=== PATIENT | female | born 1935 | race Caucasian/White ===

== ENCOUNTER → 2020-08-12 16:06 | Outpatient (CLI) | payer MEDICARE, SELFPAY ==
[2020-08-12 17:52] LABS: Alanine Aminotransferase 15 U/L (12-78); Albumin Level 4.5 g/dl (3.5-5.0); Albumin/Globulin Ratio 1.8 (1.1-1.8); Alkaline Phosphatase 81 U/L (38-126); Anion Gap 11.3 mEq/L (5-15); Aspartate Amino Transferase 26 U/L (14-36); Bilirubin,Total 0.5 mg/dl (0.2-1.3); Blood Urea Nitrogen 20 mg/dl (7-17); Calcium 9.6 mg/dl (8.4-10.2); Carbon Dioxide 28 mmol/L (22.0-30.0); Chloride 106 mmol/L (98-107); Chol/HDL Ratio 3.5 (1-3.5); Cholesterol 235 mg/dl (140-200); Estimated Glomerular Filt Rate 69 ml/min (>60); GFR (African American) 83 ML/MIN (>60); Globulin 2.5 g/dL (1.3-3.2); Glucose 96 mg/dl (74-100); HDL Cholesterol 68 mg/dl (40-60); Potassium 4.3 mmoL/L (3.5-5.1); Sodium 141 mmol/L (136-145); Triglycerides 127 mg/dl (30-150); VLDL Cholesterol 25 mg/dL (0-40)
[2020-08-12 18:05] LABS: Direct LDL Cholesterol 132.98 mg/dL (100-129)
[2020-08-12 18:22] LABS: Thyroid Stimulating Hormone 1.37 uIU/mL (0.465-4.68)
== END ==
PROVIDERS: Visit Provider Family Medicine
DX: E78.00 Pure hypercholesterolemia, unspecified (principal); I10 Essential (primary) hypertension
CPT/HCPCS: 36415; 80053; 80061; 84443

== ENCOUNTER → 2020-08-15 15:45 | Outpatient (CLI) | payer MEDICARE, SELFPAY ==
[2020-08-15 17:27] LABS: Microalbumin/Creatinine Ratio 33.5
[2020-08-15 17:34] LABS: Creatinine,Urine Random 171 mg/dL (Not Estab.)
== END ==
PROVIDERS: Visit Provider Family Medicine
DX: I10 Essential (primary) hypertension (principal); E78.00 Pure hypercholesterolemia, unspecified
CPT/HCPCS: 82043; 82570

== ENCOUNTER 2020-09-19 08:03 | Inpatient (IN) | payer MEDICARE, SELFPAY ==
[2020-09-19] VITALS (34 sets, daily range): BP systolic 124–186; BP diastolic 70–127; PULSE 74–181; RESP 8–38; TEMP 36.6–36.9; O2SAT 92–98; BMI 24.0; BMI 25.6
--- NOTE | 2020-09-19 08:03 | ECG_ITS ---
APPROVED REPORT Exam: Resting ECG HR:162 bpm ECG Measurements Heart Rate 162 AXES QRSd 82 QRS 75 QT 272 T 244 QTc 446 Conclusion Atrial fibrillation with rapid ventricular response with premature ventricular or aberrantly conducted complexes ST & T wave abnormality, consider inferolateral ischemia or digitalis effect Abnormal ECG Electronically signed by : Dandre Alexander, 09/22/2020 07:35:38
--- NOTE | 2020-09-19 08:05 | PC.NURSE ---
at bedside 0852
--- NOTE | 2020-09-19 08:11 | XR_ITS ---
PROCEDURE: XR CHEST PORTABLE CLINICAL HISTORY: soa Shortness of air, smoker COMPARISON: No exams were available for comparison FINDINGS: Mild cardiomegaly without failure. Mild airspace disease in the lung bases which may be due to atelectasis and/or infiltrate. No acute bony abnormalities. IMPRESSION: Cardiomegaly with mild bibasilar airspace disease Dictated by: Rene Cardoso MD 09/19/2020 08:59 Rene Cardoso MD in [place] 09/19/2020 08:59
[2020-09-19 08:19] LABS: Basophils # 0.1 K/mm3 (0-0.2); Basophils % 0.9 % (0.1-2.0); Eosinophils # 0.1 K/mm3 (0.0-0.4); Eosinophils % 0.6 % (0.1-12.0); Hematocrit 44.9 % (37.0-47.0); Hemoglobin 14.2 g/dL (12.2-16.2); Lymphocytes # 2.3 K/mm3 (0.7-4.5); Mean Corpuscular HGB Conc 31.5 g/dL (31.8-35.4); Mean Corpuscular Hemoglobin 29.2 pg (27.0-31.2); Mean Corpuscular Volume 92.6 fl (81-99); Mean Platelet Volume 9.4 fl (7.4-10.4); Monocytes # 0.4 K/mm3 (0.1-1.0); Monocytes % 5.1 % (1.7-9.3); Neutrophils # 5.1 K/mm3 (1.8-7.8); Neutrophils % 64.4 % (37.0-80.0); Platelet Count 191 K/mm3 (142-424); Red Blood Count 4.85 M/mm3 (4.20-5.40); Red Cell Distribution Width 14.5 % (11.5-17.5); White Blood Count 7.9 K/mm3 (4.8-10.8)
--- NOTE | 2020-09-19 08:19 | PC.NURSE ---
Rad at bedside.
[2020-09-19 08:20] LABS: Chloride 100 mmol/L (98-107); Potassium 3.7 mmoL/L (3.5-5.1); Sodium 139 mmol/L (136-145)
[2020-09-19 08:23] LABS: Anion Gap 14.7 mEq/L (5-15); Blood Urea Nitrogen 28 mg/dl (7-17); Calcium 9.4 mg/dl (8.4-10.2); Carbon Dioxide 28 mmol/L (22.0-30.0); Creatinine Clearance Estimated 43 mL/min (50-200); Estimated Glomerular Filt Rate 69 ml/min (>60); GFR (African American) 83 ML/MIN (>60); Glucose 127 mg/dl (74-100); Magnesium 2.1 mg/dl (1.6-2.3)
--- NOTE | 2020-09-19 08:25 | HMH.EDGENADL ---
ED Disposition Clinical Impression: Atrial fibrillation with RVR Disposition: Admitted As Inpatient Condition on Discharge: Good Referrals: Isaías Birch MD [Primary Care Provider] - - Critical Care Critical Care Time: Yes (IV diltiazem required for control of heart rate) Attestation: On 09/19/20, the high probability of a clinically significant, sudden or life threatening deterioration of the following system(s) required my full and direct attention, intervention and personal management. The time I documented below is in addition to time spent performing reported procedures but includes the following listed in this critical care notation. Total Critical Care Time: 40 Vital system(s) involved:: Circulatory Failure My critical care processes included: Assessment & monitoring of V/S, Initial and Re-exams, Data Review/Interpretation, Coordinating Care, Medication Orders and management, Documentation Medical Decision Making - Medical Records Medical records reviewed: Yes: I reviewed the patient's medical records. - Darian Inquiry Pt receiving controlled substance: No Vital Signs: 09/19/20 08:03 09/19/20 08:14 09/19/20 08:24 Temperature 97.9 F Temperature Source Oral Pulse Rate 176 H 115 H Pulse Rate [Right] 181 H Respiratory Rate 18 20 18 Blood Pressure 162/127 H 152/95 H Blood Pressure [Right Arm] 166/102 H Blood Pressure Mean 138 115 Blood Pressure Mean [Right Arm] 123 02 Sat by Pulse Oximetry 97 97 95 Oxygen Delivery Method Room Air 09/19/20 08:30 Temperature Temperature Source Pulse Rate 131 H Pulse Rate [Right] Respiratory Rate 20 Blood Pressure 165/92 H Blood Pressure [Right Arm] Blood Pressure Mean 121 Blood Pressure Mean [Right Arm] 02 Sat by Pulse Oximetry 95 Oxygen Delivery Method - Lab Data Lab Results 09/19/20 08:05: WBC 7.9, RBC 4.85, Hgb 14.2, Hct 44.9, MCV 92.6, MCH 29.2, MCHC 31.5 L, RDW 14.5, Plt Count 191, MPV 9.4, Neut % (Auto) 64.4, Lymph % (Auto) 29.0, [place] % (Auto) 5.1, Eos % (Auto) 0.6, Baso % (Auto) 0.9, Neut # (Auto) 5.1, Lymph # (Auto) 2.3, [place] # (Auto) 0.4, Eos # (Auto) 0.1, Baso # (Auto) 0.1 09/19/20 08:05: Sodium 139, Potassium 3.7, Chloride 100, Carbon Dioxide 28, Anion Gap 14.7, BUN 28 H, Creatinine 0.80, Estimated Creat Clear 43, Estimated GFR 69, Est GFR ( Amer) 83, Glucose 127 H, Calcium 9.4, Magnesium 2.1, Troponin I 0.04 H, NT-Pro-B Natriuret Pep 3310 H, TSH 2.42 09/19/20 08:58: D-Dimer 0.61 H Result diagrams: 09/19/20 08:05 09/19/20 08:05 Orders (Tests/Meds): ED MEDICATIONS Generic Name Dose Route Start Last Admin Trade Name Freq PRN Reason Stop Dose Admin Acetaminophen 650 mg 09/19/20 09:13 Acetaminophen 325mg Tab PO 10/19/20 09:12 Q4HP PRN As Needed for Fever or Pain Enoxaparin Sodium 60 mg 09/19/20 09:00 Enoxaparin 60mg/0.6ml Syringe SQ 10/19/20 08:59 Q12H ERIS Diltiazem HCl 100 mg/ Sodium 100 mls @ 5 mls/hr 09/19/20 08:15 09/19/20 08:27 Chloride IV 10/19/20 08:14 5 mls/hr .Q20H ERIS Administration Protocol Discontinued Medications Generic Name Dose Route Start Last Admin Trade Name Freq PRN Reason Stop Dose Admin Diltiazem HCl 20 mg 09/19/20 08:10 09/19/20 08:20 Diltiazem 25mg/5ml Vial IV 09/19/20 08:11 20 mg ONCE ONE Administration Enoxaparin Sodium 60 mg 09/19/20 09:15 09/19/20 09:14 Enoxaparin 100mg/Ml Syringe SQ 10/19/20 09:14 60 mg Q12H ERIS Administration ORDERS Category Date Time Status Consult to Cardiology [CONS] Routine Cons 09/19/20 09:12 Active Basic Metabolic Panel AMLAB Lab 09/20/20 06:00 Ordered Complete Blood Count Auto Diff AMLAB Lab 09/20/20 06:00 Ordered Full Resp Panel w/COVID ([facility]) Routine Lab 09/19/20 09:06 Received Lipid Panel AMLAB Lab 09/20/20 06:00 Ordered Magnesium AMLAB Lab 09/20/20 06:00 Ordered Phosphorous AMLAB Lab 09/20/20 06:00 Ordered Troponin I Q3H Lab 09/19/20 11:15 Ordered Troponin
[2020-09-19 08:33] LABS: NT Pro Brain Natriuretic Pep. 3310 pg/mL (0-450)
--- NOTE | 2020-09-19 08:36 | PC.NURSE ---
Lab advised they have to reject the blue top tube as it is overfilled. This is the second rejected blue top . Lab advised to send someone down to draw it.
[2020-09-19 08:37] LABS: Troponin I 0.04 ng/ml (0.00-0.034)
[2020-09-19 08:54] LABS: Thyroid Stimulating Hormone 2.42 uIU/mL (0.465-4.68)
--- NOTE | 2020-09-19 08:55 | PC.NURSE ---
Lab at bedside. MD also at bedside updating patient.
--- NOTE | 2020-09-19 09:04 | PC.NURSE ---
Dr Hernandez speaking with Leticia at this time.
--- NOTE | 2020-09-19 09:06 | CA_ITS ---
APPROVED REPORT EXAM: Comprehensive 2D, Doppler, and color-flow Echocardiogram [employer] Powerplant Repairer: Antonette Flores, RCS, RVS Ht: 5 ft 4 in Wt: 140lbs BSA: 1.68 BP: 162/98 mmHg Rhythm: Atrial Fibrillation Indications: Afib, smoker, soa 2D Dimensions IVSd 1.00 cm F: 0.6-1.0 LVEF (Visual) 33.40 % PWd 0.85 cm F: 0.6 - 1.0 LA Volume 85.10 mL LVDd 4.85 cm F: 3.9 - 5.3 LA Volume Index 50.65 mL/m2 (M/F) 16-34 LVDs 4.08 cm F: 2.2 - 3.5 LVOT 1.80 cm (M/F) 1.5-2.5 M-Mode Dimensions RVDd 2.55 cm (0.9-2.6) LA Diam 3.55 cm (1.9-4.0) LVDd 4.63 cm (3.5-5.7) Ao Diam 2.76 cm (2.0-3.7) LVDs 3.52 cm (3.5-5.7) IVSd 1.15 cm (0.6-1.1) PWd 1.11 cm (0.6-1.1) EF (Teich) 47.80% EPSs 1.04 cm FS 24.00% EDV (Teich) 98.80 mL TAPSE 1.75 (<1.7) ESV (Teich) 51.60 mL LV Diastology E Decel Time 180.00 (160-240 msec) E/A Ratio 3.5 MED E' 7.60 (< 7 cm/sec) MED A' 6.00 cm/s E'/MED E' Ratio 14.01 (>14) LAT E' 8.20 (<10 cm/sec) LAT A' 9.20 cm/s E/LAT E' Ratio 12.99 (>14) Pulm Vein s 29.00 cm/sec Aortic Valve LVOT Max 81.00 (70-110 cm/s) LVOT VTI 13.19 cm AoV Peak Joshua. 137.00 (50-130 cm/s) AO Peak GR. 7.50 mmHg AO Mean GR. 3.60 (<5 mmHg) AO VTI 20.82 (18-25 cm) DRU (VTI) 1.61 (2.5-4.5 cm2) Mitral Valve MV E Max Joshua. 107.00 (40-130 cm/s) MV A Velocity 31.00 (40-130 cm/s) E/A Ratio 3.38 MV Decel. Time 180.00 (160-240 ms) MV PHT 53.00 ms Pulmonary Valve PV Peak Velocity 65.00 (50-150 cm/s) Tricuspid Valve TR P. Velocity 335.00 cm/s RAP Estimate 10.00 mmHg RVSP 55.00 mmHg Left Ventricle Left atrium is moderately enlarged, left ventricle is normal size, mild concentric left ventricular hypertrophy, visually estimated ejection fraction 40% left ventricle is globally hypokinetic, throughout this study patient was in atrial fibrillation with rapid ventricular response. Diastolic parameters are inconclusive, Doppler evidence of increased left ventricular end-diastolic pressure. Right Ventricle Right atrium is moderately enlarged, right ventricle is mildly enlarged with normal contractility. Aortic Valve Aortic valve is thickened and calcified without Doppler evidence of aortic stenosis or aortic insufficiency. Mitral Valve Mitral valve leaflets are minimally thickened, there is moderate to severe mitral regurgitation. Tricuspid Valve Tricuspid valve is grossly normal, there is mild tricuspid regurgitation, calculated right ventricular systolic pressure is 55 mmHg. Pulmonic Valve Pulmonic valve is poorly visualized. Great Vessels Aortic root is normal size. Inferior vena cava is not well visualized Pericardium No significant pericardial effusion noted Conclusion 1. Moderate biatrial enlargement, normal left ventricular size, mild concentric left ventricular hypertrophy, visually estimated ejection fraction 40%, left ventricle is globally hypokinetic, throughout the study patient was in atrial fibrillation with rapid ventricular response, which makes accurate assessment of ejection fraction difficult. Doppler evidence of raise left ventricular end-diastolic pressure. 3. Moderate to severe mitral and mild tricuspid regurgitation, calculated right ventricular systolic pressure 55 mmHg, inferior vena cava is not well visualized. 4. No significant pericardial effusion noted. Electronically signed by : Arnoldo Garcia,
--- NOTE | 2020-09-19 09:08 | PC.NURSE ---
Dr Hernandez speaking with Cuedd at this time.
--- NOTE | 2020-09-19 09:11 | PC.NURSE ---
IV CARDIZEM TITRATED TO 10ML/HR PER MD VERBAL ORDER
[2020-09-19 09:14] LABS: Adenovirus,PCR Not Detected (NotDetected); Bordetella Pertussis Not Detected (NotDetected); Chlamydophila Pneumoniae, PCR Not Detected (NotDetected); Coronavirus 19, PCR Not Detected (NotDetected); Coronavirus 229E Not Detected (NotDetected); Coronavirus NL63 Not Detected (NotDetected); Coronavirus OC43 Not Detected (NotDetected); Coronovirus HKU1,PCR Not Detected (NotDetected); Human Metapneumovirus Not Detected (NotDetected); Influenza A, PCR Not Detected (NotDetected); Influenza AH1, 2009 Not Detected (NotDetected); Influenza AH1, PCR Not Detected (NotDetected); Influenza AH3,PCR Not Detected (NotDetected); Influenza B, PCR Not Detected (NotDetected); Mycoplasma Pneumoniae, PCR Not Detected (NotDetected); Parainfluenza 1, PCR Not Detected (NotDetected); Parainfluenza 2, PCR Not Detected (NotDetected); Parainfluenza 3, PCR Not Detected (NotDetected); Parainfluenza 4, PCR Not Detected (NotDetected); Respiratory Syncytial Virus Not Detected (NotDetected); Rhinovirus/Enterovirus Not Detected (NotDetected)
[2020-09-19 09:22] LABS: D-Dimer 0.61 ug/mL (0.0-0.5)
--- NOTE | 2020-09-19 10:11 | PC.NURSE ---
CV lab at bedside
--- NOTE | 2020-09-19 11:43 | HMH.CNCARD ---
History of Present Illness Consult date: 09/19/20 Requesting physician: Antonio Hernandez Consult reason: atrial fibrillation Chief complaint: SOA History of present illness: This is an 84-year-old white female who presented to the emergency department with complaints of shortness of breath. The patient states that she has been short of breath for approximately a week. She states that this has continued to worsen. She states that she is unable to lie flat due to her significant shortness of breath. She states her shortness of breath is worse with exertion and it does improve with rest but it does not go away. She states that sitting up completely also causes her to be significantly short of breath. The patient states that she just has not felt well the last 2 weeks. She was also constipated and took MiraLAX approximately 2 days ago and has been having diarrhea ever since then. She denies any chest pain or pressure. She denies any lower extremity edema. She denies any fever, chills, nausea or vomiting. She denies a cough. She does complain of excessive burping in the last 2 weeks as well and also states that this gets worse when she lies down. She states that her heart started racing 2 days ago and has not resolved. She states that this got worse this morning. On presentation to the emergency department she was found to be in atrial fibrillation with RVR, heart rate in the 180s. She was given 20 mg of IV diltiazem and her heart rate dropped down to the 110s to 120s. She remains in atrial fibrillation at this time. [facility] History I have reviewed the patient's past medical history: Yes Medical History: Reports:: Arrhythmia, Atrial Fibrillation, Hypertension Denies:: Atherosclerotic Heart Disease, Cancer, Diabetes Mellitus Type 1, Diabetes Mellitus Type 2, Hyperlipidemia, Internal Pacemaker, MRSA, Seizures *Have you ever received a pneumonia vaccine?: No *Have you received a flu vaccine this season?: No Other Surgeries: No: Pacemaker Amputation: No Fractures: No - *Social History Smoking Status: Current every day smoker Tobacco Type: cigarettes # Packs/Day (cigarettes): 60 Alcohol Intake: never *Occupational Status:: retired Housing: house *Travel in the last 8 weeks: None Family Hx:: Hypertension Meds Home Medications Medication Instructions Recorded Confirmed Type Amitriptyline HCl [Elavil 10mg 25 mg PO QODHS 07/27/19 09/19/20 History tablet] Allergies Allergy/AdvReac Type Severity Reaction Status Date / Time No Known Allergies Allergy Verified 07/27/19 13:37 Exam Vital signs and Labs for Last 24 Hours: Temp Pulse Resp BP Pulse Ox 97.9 F 108 H 21 156/104 H 94 L 09/19/20 08:03 09/19/20 09:46 09/19/20 09:40 09/19/20 09:46 09/19/20 09:46 Laboratory Results - last 24 hr 09/19/20 08:05: WBC 7.9, RBC 4.85, Hgb 14.2, Hct 44.9, MCV 92.6, MCH 29.2, MCHC 31.5 L, RDW 14.5, Plt Count 191, MPV 9.4, Neut % (Auto) 64.4, Lymph % (Auto) 29.0, [place] % (Auto) 5.1, Eos % (Auto) 0.6, Baso % (Auto) 0.9, Neut # (Auto) 5.1, Lymph # (Auto) 2.3, [place] # (Auto) 0.4, Eos # (Auto) 0.1, Baso # (Auto) 0.1 09/19/20 08:05: Sodium 139, Potassium 3.7, Chloride 100, Carbon Dioxide 28, Anion Gap 14.7, BUN 28 H, Creatinine 0.80, Estimated Creat Clear 43, Estimated GFR 69, Est GFR ( Amer) 83, Glucose 127 H, Calcium 9.4, Magnesium 2.1, Troponin I 0.04 H, NT-Pro-B Natriuret Pep 3310 H, TSH 2.42 09/19/20 08:58: D-Dimer 0.61 H 09/19/20 09:06: Chlamy pneumoniae PCR Not detected, Adenovirus (PCR) Not detected, B. pertussis DNA (PCR) Not detected, Coronavirus OC43 (PCR) Not detected, Coronavirus HKU1 (PCR) Not detected, Coronavirus 229E (PCR) Not detected, SARS-CoV-2 (PCR) Not detected, Coronavirus NL63 (PCR) Not detected, Human Metapneumovir PCR Not detected, Influenza A (H1) PCR Not detected, Influ A (H1N1/09) PCR Not detected, Influenza A (H3) PCR Not detected, Influenza Type A (PCR) Not detected, Influenza Type B (PCR) Not detected, Kevyn wolf
[2020-09-19 11:55] LABS: Troponin I 0.04 ng/ml (0.00-0.034)
[2020-09-19 13:12] LABS: ABG Base Excess -0.8 mmol/L (-2.4-2.3); ABG HCO3 23.2 mmhg (22.0-26.0); ABG Oxygen Saturation 93 % (90-100); ABG PCO2 34.5 mmhg (35.0-45.0); ABG PH 7.45 mmol/L (7.35-7.45); ABG PO2 67.4 mmhg (80-100); ABG TCO2 24.3 mmhg (23-27)
[2020-09-19 13:15] LABS: Allen's Test Acceptable; Oxygen room air %; Source Right Radial
--- NOTE | 2020-09-19 13:52 | PC.NURSE ---
2L O2 via NC applied per Dr. Birch.
--- NOTE | 2020-09-19 13:58 | HMH.ACPN2 ---
Internal Medicine - PN: Subj *Date: 09/19/20 *Time: 13:58 Interval history: Pt admitted with A fib with RVR, see H&P. Exam Vital signs and Labs for Last 24 Hours: Temp Pulse Resp BP Pulse Ox 97.9 F 128 H 20 124/72 92 L 09/19/20 12:46 09/19/20 13:33 09/19/20 12:46 09/19/20 12:46 09/19/20 12:46 Laboratory Results - last 24 hr 09/19/20 08:05: WBC 7.9, RBC 4.85, Hgb 14.2, Hct 44.9, MCV 92.6, MCH 29.2, MCHC 31.5 L, RDW 14.5, Plt Count 191, MPV 9.4, Neut % (Auto) 64.4, Lymph % (Auto) 29.0, [place] % (Auto) 5.1, Eos % (Auto) 0.6, Baso % (Auto) 0.9, Neut # (Auto) 5.1, Lymph # (Auto) 2.3, [place] # (Auto) 0.4, Eos # (Auto) 0.1, Baso # (Auto) 0.1 09/19/20 08:05: Sodium 139, Potassium 3.7, Chloride 100, Carbon Dioxide 28, Anion Gap 14.7, BUN 28 H, Creatinine 0.80, Estimated Creat Clear 43, Estimated GFR 69, Est GFR ( Amer) 83, Glucose 127 H, Calcium 9.4, Magnesium 2.1, Troponin I 0.04 H, NT-Pro-B Natriuret Pep 3310 H, TSH 2.42 09/19/20 08:58: D-Dimer 0.61 H 09/19/20 09:06: Chlamy pneumoniae PCR Not detected, Adenovirus (PCR) Not detected, B. pertussis DNA (PCR) Not detected, Coronavirus OC43 (PCR) Not detected, Coronavirus HKU1 (PCR) Not detected, Coronavirus 229E (PCR) Not detected, SARS-CoV-2 (PCR) Not detected, Coronavirus NL63 (PCR) Not detected, Human Metapneumovir PCR Not detected, Influenza A (H1) PCR Not detected, Influ A (H1N1/09) PCR Not detected, Influenza A (H3) PCR Not detected, Influenza Type A (PCR) Not detected, Influenza Type B (PCR) Not detected, M. pneumoniae (PCR) Not detected, Parainfluenza 1 (PCR) Not detected, Parainfluenza 2 (PCR) Not detected, Parainfluenza 3 (PCR) Not detected, Parainfluenza 4 (PCR) Not detected, RSV (PCR) Not detected, Entero/Rhino (PCR) Not detected 09/19/20 11:20: Troponin I 0.04 H 09/19/20 12:42: Specimen Source Right radial, O2 % room air, ABG pH 7.45, ABG pCO2 34.5 L, ABG pO2 67.4 L, ABG HCO3 23.2, ABG Total CO2 24.3, ABG O2 Saturation 93, ABG Base Excess -0.8, Rene Test Acceptable I & O for Last 24 hours: Intake & Output 09/16/20 09/17/20 09/18/20 09/19/20 23:59 23:59 23:59 23:59 Weight 149 lb 3 oz - Constitutional no acute distress - *Routine Respiratory Exam Comments: few coarse breath sounds, no crackles - *Routine Cardiovascular Exam Present: tachycardia, irregular rhythm Assessment and Plan (1) Cardiomyopathy Status: Acute Category: Medical Code(s): I42.9 - Cardiomyopathy, unspecified (2) Atrial fibrillation with RVR Status: Acute Category: Medical Code(s): I48.91 - Unspecified atrial fibrillation (3) Elevated brain natriuretic peptide (BNP) level Status: Acute Category: Medical Code(s): R79.89 - Other specified abnormal findings of blood chemistry (4) CHF (congestive heart failure) Status: Acute Category: Medical Code(s): I50.9 - Heart failure, unspecified (5) Orthopnea Status: Acute Category: Medical Code(s): R06.01 - Orthopnea (6) SOB (shortness of breath) Status: Acute Category: Medical Code(s): R06.02 - Shortness of breath (7) Palpitations Status: Acute Category: Medical Code(s): R00.2 - Palpitations (8) Hypertension Status: Chronic Category: Medical Code(s): I10 - Essential (primary) hypertension (9) Tobacco use Status: Chronic Category: Social Hx Code(s): Z72.0 - Tobacco use (10) Hypokinesis Status: Acute Category: Medical Code(s): R68.89 - Other general symptoms and signs (11) Pulmonary hypertension Status: Acute Category: Medical Code(s): I27.20 - Pulmonary hypertension, unspecified - Assessment and plan all Dx Assessment and Plan for all problems:: Cardiology following, further testing is in order.
--- NOTE | 2020-09-19 14:30 | PC.NURSE ---
Diltiazem gtt turned OFF per Leydi Dawson APRN
--- NOTE | 2020-09-19 14:31 | HMH.PHAVTE ---
[facility] Pharm[facility] VTE Monitoring - Patient Demographics Admission date: 09/19/20 Report Date: 09/19/20 Time: 14:31 Allergies/Adverse Reactions: Patient Allergies No Known Allergies Allergy (Verified 07/27/19 13:37) Height: 1.63 m Weight: 67.67 kg Patient Problems: Current Active Problems Atrial fibrillation with RVR (Acute) Hypertension (Chronic) Palpitations (Acute) SOB (shortness of breath) (Acute) Orthopnea (Acute) CHF (congestive heart failure) (Acute) Elevated brain natriuretic peptide (BNP) level (Acute) Tobacco use (Chronic) Cardiomyopathy (Acute) Hypokinesis (Acute) Pulmonary hypertension (Acute) - VTE Risk Labs: VTE Related Lab Results Hgb 14.2 g/dL (12.2-16.2) 09/19/20 08:05 Hct 44.9 % (37.0-47.0) 09/19/20 08:05 Plt Count 191 K/mm3 (142-424) 09/19/20 08:05 BUN 28 mg/dl (7-17) H 09/19/20 08:05 Creatinine 0.80 mg/dl (0.52-1.04) 09/19/20 08:05 Estimated Creat Clear 43 mL/min (50-200) 09/19/20 08:05 - Prophylaxis VTE Prophylaxis Ordered?: Yes Types of VTE Prophylaxis: TEDS Knee High, Pharmacological Location of Applied Device: Bilateral Lower Extremeties Pharmacologic Type: Enoxaparin
[2020-09-19 14:43] LABS: Troponin I 0.04 ng/ml (0.00-0.034)
--- NOTE | 2020-09-19 15:37 | HMH.HP ---
*Admission Date: 09/19/20 *Chief complaint: shortness of breath, vertigo *History of present illness: This is an 84-year-old white female who presented to the emergency department with complaints of shortness of breath. The patient states that she has been short of breath for approximately a week. She states that this has continued to worsen. She states that she is unable to lie flat due to her significant shortness of breath. She states her shortness of breath is worse with exertion and it does improve with rest but it does not go away. She states that sitting up completely also causes her to be significantly short of breath. The patient states that she just has not felt well the last 2 weeks. She was also constipated and took MiraLAX approximately 2 days ago and has been having diarrhea ever since then. She denies any chest pain or pressure. She denies any lower extremity edema. She denies any fever, chills, nausea or vomiting. She denies a cough. She does complain of excessive burping in the last 2 weeks as well and also states that this gets worse when she lies down. She states that her heart started racing 2 days ago and has not resolved. She states that this got worse this morning. On presentation to the emergency department she was found to be in atrial fibrillation with RVR, heart rate in the 180s. She was given 20 mg of IV diltiazem and her heart rate dropped down to the 110s to 120s. She remains in atrial fibrillation at this time. (above as per Leydi Dawson) [facility] History I have reviewed the patient's past medical history: Yes Medical History: Reports:: Arrhythmia, Atrial Fibrillation, Cardiomyopathy, Congestive Heart Failure, Cerebrovascular Accident, Hypertension, Palpitations Denies:: Atherosclerotic Heart Disease, Cancer, Diabetes Mellitus Type 1, Diabetes Mellitus Type 2, Hyperlipidemia, Internal Pacemaker, MRSA, Seizures *Have you ever received a pneumonia vaccine?: No *Have you received a flu vaccine this season?: No Other Surgeries: No: Pacemaker Amputation: No Fractures: No - *Social History Smoking Status: Current every day smoker Tobacco Type: cigarettes # Packs/Day (cigarettes): 3 Alcohol Intake: never *Occupational Status:: retired Housing: apartment *Travel in the last 8 weeks: None Family Hx:: Hypertension Review of Systems - Constitutional Reports fatigue, Reports malaise, Reports weakness, Denies fever(s) - Eyes Denies blurry vision, Denies double vision - ENT Denies nasal congestion, Denies sore throat - *Cardiovascular Reports shortness of breath, Reports leg swelling, Reports rapid, pounding, or irregular heartbeat, Denies chest pain - *Respiratory Reports cough, Reports shortness of breath - *Gastrointestinal Reports abdominal pain, Reports loose stools, Reports nausea, Reports vomiting - *Genitourinary Denies difficulty urinating, Denies painful urination - *Musculoskeletal Denies joint pain - *Neurologic Reports dizziness, Reports weakness, Denies dizziness, Denies headache(s) Meds Home Medications Medication Instructions Recorded Confirmed Type Amitriptyline HCl [Elavil 10mg 25 mg PO QODHS 07/27/19 09/19/20 History tablet] Allergies Allergy/AdvReac Type Severity Reaction Status Date / Time No Known Allergies Allergy Verified 07/27/19 13:37 Exam Vital signs and Labs for Last 24 Hours: Temp Pulse Resp BP Pulse Ox 98.4 F 104 H 18 162/101 H 97 09/19/20 14:24 09/19/20 14:24 09/19/20 14:24 09/19/20 14:24 09/19/20 14:00 Laboratory Results - last 24 hr 09/19/20 08:05: WBC 7.9, RBC 4.85, Hgb 14.2, Hct 44.9, MCV 92.6, MCH 29.2, MCHC 31.5 L, RDW 14.5, Plt Count 191, MPV 9.4, Neut % (Auto) 64.4, Lymph % (Auto) 29.0, [place] % (Auto) 5.1, Eos % (Auto) 0.6, Baso % (Auto) 0.9, Neut # (Auto) 5.1, Lymph # (Auto) 2.3, [place] # (Auto) 0.4, Eos # (Auto) 0.1, Baso # (Auto) 0.1 09/19/20 08:05: Sodium 139, Potassium 3.7, Chloride 100, Carbon Dioxide 28, Ani
--- NOTE | 2020-09-19 15:45 | PC.NURSE ---
attempted to get cathlab consent signed but pt states that she wants to wait until tomorrow morning to sign it. She needs time to make a decision.
--- NOTE | 2020-09-19 15:47 | PC.NURSE ---
informed Leydi Dawson APRN of hyptension (184/106) with MAP 132. No new orders received @ this time.
--- NOTE | 2020-09-19 17:13 | PC.NURSE ---
pt has agreed to heart cath tomorrow. Consent has been signed and placed on chart
--- NOTE | 2020-09-19 18:06 | PC.NURSE ---
Spoke to Dr. Birch regarding BP 186/104 (131). He ordered Lisinopril 10mg po x 1 dose. Order faxed to [facility].
--- NOTE | 2020-09-19 22:27 | PC.NURSE ---
RA SATS WERE 89%. RETURNED PT BACK ON 2L.
[2020-09-20] VITALS (24 sets, daily range): BP systolic 109–153; BP diastolic 47–121; PULSE 83–106; RESP 16–28; TEMP 36.5–36.9; O2SAT 90–98; BMI 22.1
--- NOTE | 2020-09-20 | IR_ITS ---
APPROVED REPORT Patient Location: Inpatient Oracle Sql Developer: RODOLFO Luna RT (R) PROCEDURES Left heart catheterization Left ventriculogram Selective coronary angiogram Drug-eluting stent deployment to the proximal LAD Drug-eluting stent deployment to the ostial proximal mid and distal dominant right coronary artery Drug-eluting stent deployment to the proximal posterior descending artery INDICATION Ischemic cardiomyopathy, Elevated troponin/acute coronary syndrome, Coronary disease, Advanced age with significant comorbidities making coronary artery bypass surgery not an option Informed consent was obtained prior to the procedure. COMPLICATIONS None Estimated Blood Loss: Less than 10 mls TECHNIQUE One percent lidocaine used to anesthetize the right anterior aspect of the wrist. The right radial artery was accessed via the Seldinger technique. A 6 [place] sheath was placed in the right radial artery. 2.5 mg of verapamil, 800 mcg of nitroglycerin, 1mg Lidocaine and 5000 U Heparin were given through the arterial sheath. The 6 [place] tag catheter was also used to perform left heart catheterization, left ventriculogram and selective coronary angiogram. At the end of the diagnostic procedure therapeutic heparin was administered and the catheter was placed in the left main artery. 2 wires were placed in the left system 1 in the circumflex artery and a floppy wire in the LAD system. A 2.5 x 30 mm resolute [place] stent was deployed in the ostial proximal LAD at 16 gilberto reducing the severe to critical stenosis to 0%. ISMAEL-3 flow was present before and after the procedure. After achieving excellent angiographic results the apparatus was removed and the catheter was placed back into the right coronary where a choice PT extra-support wire was placed distally. A 2.5 x 38 mm resolute [place] stent was placed to the posterior descending artery and deployed at 14 gilberto reducing the severe stenosis to less than 10%. An additional 2.5 x 38 mm resolute Clement stent was then placed in the distal right coronary artery overlapping the stent and deployed at 16 gilberto. A 2.75 x 38 mm resolute Clement stent was then placed proximal to this overlapping the second stent and deployed at 18 gilberto. An additional 2.75 x 30 mm resolute [place] stent was then placed in the ostial segment of the right coronary artery making an overlap of the 2.75 mm stent and then deployed at 18 gilberto. 800 mcg of nitroglycerin was administered down the right coronary artery. Excellent angiographic results were obtained with wide patency of the entire vessel with excellent inline flow into the posterior descending artery. At the end of the procedure the apparatus was removed the sheath was removed good hemostasis was achieved using TR banding patient was transferred to the postop holding in stable condition ANGIOGRAPHIC RESULTS The left main artery Normal The left anterior descending artery Has a proximal eccentric 70% stenosis followed by concentric 90% stenosis. The midportion of the vessel was extremely tortuous but patent. The circumflex artery There is a nondominant yet still large vessel giving rise to 2 large obtuse marginal arteries. The proximal vessel has 20 to 30% stenoses while the second obtuse marginal artery has a proximal concentric 40 to 50% stenosis The right coronary artery Is a dominant vessel with proximal mid vessel distal critical disease which extends into a large posterior descending artery The TRAN ventriculogram reveals Reduced at 35 % The left ventricular end-diastolic pressure 20 mmHg IMPRESSION Severe to critical two-vessel coronary disease as described above Successful stenting the proximal LAD severe disease reduced to 0%
[2020-09-20 07:21] LABS: Basophils % 0.2 % (0.1-2.0); Hematocrit 45.5 % (37.0-47.0); Hemoglobin 14.2 g/dL (12.2-16.2); Lymphocytes # 0.7 K/mm3 (0.7-4.5); Lymphocytes % 9.7 % (10-50); Mean Corpuscular HGB Conc 31.1 g/dL (31.8-35.4); Mean Corpuscular Hemoglobin 28.7 pg (27.0-31.2); Mean Corpuscular Volume 92.1 fl (81-99); Mean Platelet Volume 9.7 fl (7.4-10.4); Monocytes # 0.2 K/mm3 (0.1-1.0); Monocytes % 3.4 % (1.7-9.3); Neutrophils # 5.9 K/mm3 (1.8-7.8); Neutrophils % 86.7 % (37.0-80.0); Platelet Count 168 K/mm3 (142-424); Red Blood Count 4.94 M/mm3 (4.20-5.40); Red Cell Distribution Width 14.3 % (11.5-17.5); White Blood Count 6.8 K/mm3 (4.8-10.8)
[2020-09-20 07:26] LABS: MANUAL DIFFERENTIAL MANUAL DIFFERENTIAL (MANUAL DIFF)
[2020-09-20 07:28] LABS: Chloride 96 mmol/L (98-107); Potassium 3.2 mmoL/L (3.5-5.1); Sodium 140 mmol/L (136-145)
[2020-09-20 07:31] LABS: Anion Gap 11.2 mEq/L (5-15); Blood Urea Nitrogen 22 mg/dl (7-17); Calcium 8.8 mg/dl (8.4-10.2); Carbon Dioxide 36 mmol/L (22.0-30.0); Cholesterol 193 mg/dl (140-200); Creatinine Clearance Estimated 39 mL/min (50-200); Estimated Glomerular Filt Rate 80 ml/min (>60); GFR (African American) 97 ML/MIN (>60); Glucose 101 mg/dl (74-100); Phosphorous 4.6 mg/dl (2.5-4.5); Triglycerides 66 mg/dl (30-150); VLDL Cholesterol 13 mg/dL (0-40)
[2020-09-20 07:32] LABS: Chol/HDL Ratio 4.5 (1-3.5); HDL Cholesterol 43 mg/dl (40-60); Magnesium 1.8 mg/dl (1.6-2.3)
[2020-09-20 07:42] LABS: Direct LDL Cholesterol 135.54 mg/dL (100-129)
--- NOTE | 2020-09-20 07:59 | HMH.PNCARD ---
Subjective Date: 09/20/20 Time: 07:25 Principal diagnosis: Atrial fibrillation Interval history: 84-year-old female admitted to [facility] with progressively worsening shortness of breath yesterday. Patient does have history of COPD. Patient was noted to be in atrial fibrillation with RVR. Patient had been started on a diltiazem drip in which her heart rate slowed down to 110s. Patient remains in atrial fibrillation with a heart rate in the 90s. Diltiazem drip has been stopped due to cardiomyopathy. Patient was started on metoprolol 25 mg p.o. every 6 hours for heart rate control. Patient was also started on digoxin for rhythm control. Patient is currently receiving a weight-based Lovenox twice daily but prior to discharge patient will need to be switched over to Xarelto once daily. Due to the progressively worsening shortness of breath, cardiomyopathy and pulmonary hypertension, patient will undergo left and right heart catheterization today. Patient denies chest pain, tightness or pressure. Patient states her shortness of breath is feeling slightly better. Patient is noted to be on oxygen at 2 L by nasal cannula. Slight swelling noted of the lower extremities. Patient denies dizziness or palpitations. Patient is resting quietly with daughter at bedside. Patient does have moderate to severe mitral valve regurgitation. Patient is not a candidate for surgery due to her severe COPD. Vital signs stable at this time. Due to patient not being a candidate for valve surgery, patient is scheduled for left and right heart catheterization today due to dyspnea, cardiomyopathy and pulmonary hypertension. Pending on the results of the left and right heart catheterization, medication and treatment therapy may be recommended. Echo: Conclusion 1. Moderate biatrial enlargement, normal left ventricular size, mild concentric left ventricular hypertrophy, visually estimated ejection fraction 40%, left ventricle is globally hypokinetic, throughout the study patient was in atrial fibrillation with rapid ventricular response, which makes accurate assessment of ejection fraction difficult. Doppler evidence of raise left ventricular end-diastolic pressure. 3. Moderate to severe mitral and mild tricuspid regurgitation, calculated right ventricular systolic pressure 55 mmHg, inferior vena cava is not well visualized. 4. No significant pericardial effusion noted. Thank you for allowing cardiology to participate in the care of this patient. Exam Vital signs and Labs for Last 24 Hours: Temp Pulse Resp BP Pulse Ox 98.0 F 91 H 19 153/96 H 92 L 09/20/20 04:00 09/20/20 06:00 09/20/20 06:00 09/20/20 06:00 09/20/20 04:00 Laboratory Results - last 24 hr 09/19/20 08:05: WBC 7.9, RBC 4.85, Hgb 14.2, Hct 44.9, MCV 92.6, MCH 29.2, MCHC 31.5 L, RDW 14.5, Plt Count 191, MPV 9.4, Neut % (Auto) 64.4, Lymph % (Auto) 29.0, [place] % (Auto) 5.1, Eos % (Auto) 0.6, Baso % (Auto) 0.9, Neut # (Auto) 5.1, Lymph # (Auto) 2.3, [place] # (Auto) 0.4, Eos # (Auto) 0.1, Baso # (Auto) 0.1 09/19/20 08:05: Sodium 139, Potassium 3.7, Chloride 100, Carbon Dioxide 28, Anion Gap 14.7, BUN 28 H, Creatinine 0.80, Estimated Creat Clear 43, Estimated GFR 69, Est GFR ( Amer) 83, Glucose 127 H, Calcium 9.4, Magnesium 2.1, Troponin I 0.04 H, NT-Pro-B Natriuret Pep 3310 H, TSH 2.42 09/19/20 08:58: D-Dimer 0.61 H 09/19/20 09:06: Chlamy pneumoniae PCR Not detected, Adenovirus (PCR) Not detected, B. pertussis DNA (PCR) Not detected, Coronavirus OC43 (PCR) Not detected, Coronavirus HKU1 (PCR) Not detected, Coronavirus 229E (PCR) Not detected, SARS-CoV-2 (PCR) Not detected, Coronavirus NL63 (PCR) Not detected, Human Metapneumovir PCR Not detected, Influenza A (H1) PCR Not detected, Influ A (H1N1/09) PCR Not detected, Influenza A (H3) PCR Not detected, Influenza Type A (PCR) Not detected, Influenza Type B (PCR) Not detected, M. pneumoniae (PCR) Not detected, Parainfluenza 1 (PC
[2020-09-20 08:23] LABS: Lymphocytes % 6 % (10-50); Monocytes % 3 % (2-9); Neutrophils % 87 % (42-76); Platelet Estimate Normal; RBC Morphology Normal; Total Cells Counted 100
--- NOTE | 2020-09-20 08:36 | HMH.ACPN2 ---
<Donya Eaton - Last Filed: 09/20/20 08:36> Internal Medicine - PN: Subj *Date: 09/20/20 *Time: 08:36 Interval history: Patient states she is feeling better today. She denies any chest pain. She states her shortness of breath has improved slightly. Her heart rate has decreased. She was able to rest better last night. Exam Vital signs and Labs for Last 24 Hours: Temp Pulse Resp BP Pulse Ox 97.7 F 92 H 20 152/78 H 92 L 09/20/20 08:00 09/20/20 08:00 09/20/20 08:00 09/20/20 08:00 09/20/20 08:00 Laboratory Results - last 24 hr 09/19/20 08:05: WBC 7.9, RBC 4.85, Hgb 14.2, Hct 44.9, MCV 92.6, MCH 29.2, MCHC 31.5 L, RDW 14.5, Plt Count 191, MPV 9.4, Neut % (Auto) 64.4, Lymph % (Auto) 29.0, [place] % (Auto) 5.1, Eos % (Auto) 0.6, Baso % (Auto) 0.9, Neut # (Auto) 5.1, Lymph # (Auto) 2.3, [place] # (Auto) 0.4, Eos # (Auto) 0.1, Baso # (Auto) 0.1 09/19/20 08:05: Troponin I 0.04 H, NT-Pro-B Natriuret Pep 3310 H, TSH 2.42 09/19/20 08:58: D-Dimer 0.61 H 09/19/20 09:06: Chlamy pneumoniae PCR Not detected, Adenovirus (PCR) Not detected, B. pertussis DNA (PCR) Not detected, Coronavirus OC43 (PCR) Not detected, Coronavirus HKU1 (PCR) Not detected, Coronavirus 229E (PCR) Not detected, SARS-CoV-2 (PCR) Not detected, Coronavirus NL63 (PCR) Not detected, Human Metapneumovir PCR Not detected, Influenza A (H1) PCR Not detected, Influ A (H1N1/09) PCR Not detected, Influenza A (H3) PCR Not detected, Influenza Type A (PCR) Not detected, Influenza Type B (PCR) Not detected, M. pneumoniae (PCR) Not detected, Parainfluenza 1 (PCR) Not detected, Parainfluenza 2 (PCR) Not detected, Parainfluenza 3 (PCR) Not detected, Parainfluenza 4 (PCR) Not detected, RSV (PCR) Not detected, Entero/Rhino (PCR) Not detected 09/19/20 11:20: Troponin I 0.04 H 09/19/20 12:42: Specimen Source Right radial, O2 % room air, ABG pH 7.45, ABG pCO2 34.5 L, ABG pO2 67.4 L, ABG HCO3 23.2, ABG Total CO2 24.3, ABG O2 Saturation 93, ABG Base Excess -0.8, Rene Test Acceptable 09/19/20 14:10: Troponin I 0.04 H 09/20/20 05:20: WBC 6.8, RBC 4.94, Hgb 14.2, Hct 45.5, MCV 92.1, MCH 28.7, MCHC 31.1 L, RDW 14.3, Plt Count 168, MPV 9.7, Neut % (Auto) 86.7 H, Lymph % (Auto) 9.7 L, [place] % (Auto) 3.4, Eos % (Auto) 0.0 L, Baso % (Auto) 0.2, Neut # (Auto) 5.9, Lymph # (Auto) 0.7, [place] # (Auto) 0.2, Eos # (Auto) 0.0, Baso # (Auto) 0.0, Total Counted 100, Neutrophils % (Manual) 87 H, Lymphocytes % (Manual) 6 L, Atypical Lymphs % 4.0, Monocytes % (Manual) 3, Platelet Estimate Normal, RBC Morphology Normal 09/20/20 05:20: Sodium 140, Potassium 3.2 L, Chloride 96 L, Carbon Dioxide 36 H D, Anion Gap 11.2, BUN 22 H, Creatinine 0.70, Estimated Creat Clear 39, Estimated GFR 80, Est GFR ( Amer) 97, Glucose 101 H D, Calcium 8.8, Phosphorus 4.6 H, Magnesium 1.8 D, Triglycerides 66, Cholesterol 193, LDL Cholesterol Direct 135.54 H, VLDL Cholesterol 13, HDL Cholesterol 43, Cholesterol/HDL Ratio 4.5 H I & O for Last 24 hours: Intake & Output 09/17/20 09/18/20 09/19/20 09/20/20 11:59 11:59 11:59 11:59 Intake Total Output Total 0 / 0 Balance Weight 140 lb 129 lb 6 oz - Constitutional no acute distress - *Routine Respiratory Exam Present: rhonchi. Absent: rales - *Routine Cardiovascular Exam Present: irregularly irregular - *Routine Abdominal Exam Present: soft, normoactive bowel sounds. Absent: tenderness - *Routine Extremities Exam Absent: cyanosis, clubbing, edema - *Routine Skin Exam Present: warm. Absent: rash - *Routine Neurological Exam Present: alert, oriented X3 Assessment and Plan (1) Cardiomyopathy Status: Acute Category: Medical Code(s): I42.9 - Cardiomyopathy, unspecified (2) Atrial fibrillation with RVR Status: Acute Category: Medical Code(s): I48.91 - Unspecified atrial fibrillation (3) Elevated brain natriuretic peptide (BNP) level Status: Acute Category: Medical Code(s): R79.89 - Other specified abnormal findings of blood
--- NOTE | 2020-09-20 11:25 | PC.NURSE ---
Pt off floor for heart cath
[2020-09-20 13:21] LABS: CATHL Activated Clotting Time > 400 SEC (74-125)
--- NOTE | 2020-09-20 13:30 | PC.NURSE ---
Pt returned from flower shop laborer/designer via Bari Jones RN and RUTHY Manuel
--- NOTE | 2020-09-20 16:27 | PC.NURSE ---
Pt is alert and oriented x4. Occasional faint wheezes noted to lungs. She is currently on 2L NC with O2 sats running 90-96%. She is able to verbalize her needs. Right IJ site has a gauze and tegaderm in place. It is clean, dry and intact. Telfa and tegaderm just placed to right radial site. It is clean, dry and intact. No s/s of hematoma to either site. She has had a BM today. She has a brief on due to incontinence. She has been controlled afib on telemetry with HR in the 90's. She denies sob or chest pain. Family has taken turns visiting and are supportive.
--- NOTE | 2020-09-20 20:17 | PC.NURSE ---
RA SATS WERE 90% PT RETURNED TO 2L NC
[2020-09-21] VITALS (13 sets, daily range): BP systolic 102–157; BP diastolic 50–98; PULSE 73–110; RESP 16–20; TEMP 36.4–36.8; O2SAT 92–97; BMI 21.5
--- NOTE | 2020-09-21 04:25 | PC.NURSE ---
Pt has been reminded multiple times to not use (R) arm. Sling is in place. DSG to (R) radial site is intact with scant drainage noted with bruising. Pt has been incontinent of urine this shift with multiple brief changes. Urine output significant. Purewick placed to keep pt more dry and hygiene. VSS at this time. Pt has had some episodes of HTN. No other concerns at this time. Will continue to monitor.
--- NOTE | 2020-09-21 04:40 | PC.NURSE ---
O2 titrated this shift. Pt is currently on RA. Will continue to monitor.
[2020-09-21 06:08] LABS: Basophils % 0.2 % (0.1-2.0); Eosinophils % 0.1 % (0.1-12.0); Hematocrit 44.7 % (37.0-47.0); Hemoglobin 14.5 g/dL (12.2-16.2); Lymphocytes % 17.2 % (10-50); Mean Corpuscular HGB Conc 32.5 g/dL (31.8-35.4); Mean Corpuscular Hemoglobin 29.4 pg (27.0-31.2); Mean Corpuscular Volume 90.5 fl (81-99); Mean Platelet Volume 9.1 fl (7.4-10.4); Monocytes # 0.6 K/mm3 (0.1-1.0); Monocytes % 5.1 % (1.7-9.3); Neutrophils # 8.9 K/mm3 (1.8-7.8); Neutrophils % 77.4 % (37.0-80.0); Platelet Count 176 K/mm3 (142-424); Red Blood Count 4.94 M/mm3 (4.20-5.40); Red Cell Distribution Width 14.3 % (11.5-17.5); White Blood Count 11.6 K/mm3 (4.8-10.8)
[2020-09-21 06:10] LABS: Chloride 99 mmol/L (98-107); Sodium 141 mmol/L (136-145)
[2020-09-21 06:13] LABS: Blood Urea Nitrogen 21 mg/dl (7-17); Calcium 8.6 mg/dl (8.4-10.2); Carbon Dioxide 37 mmol/L (22.0-30.0); Creatinine Clearance Estimated 39 mL/min (50-200); Estimated Glomerular Filt Rate 69 ml/min (>60); GFR (African American) 83 ML/MIN (>60); Glucose 91 mg/dl (74-100)
--- NOTE | 2020-09-21 08:47 | HMH.ACPN2 ---
Internal Medicine - PN: Subj *Date: 09/21/20 *Time: 08:47 Interval history: Patient with no new complaints today. She feels better, states she had left heart cath yesterday and had 5 stents placed. Exam Vital signs and Labs for Last 24 Hours: Temp Pulse Resp BP Pulse Ox 97.6 F 90 18 150/85 H 92 L 09/21/20 04:00 09/21/20 08:25 09/21/20 06:00 09/21/20 06:00 09/21/20 06:00 Laboratory Results - last 24 hr 09/20/20 12:28: Activated Clotting Time > 400 H* 09/21/20 05:45: WBC 11.6 H D, RBC 4.94, Hgb 14.5, Hct 44.7, MCV 90.5, MCH 29.4, MCHC 32.5, RDW 14.3, Plt Count 176, MPV 9.1, Neut % (Auto) 77.4, Lymph % (Auto) 17.2, [place] % (Auto) 5.1, Eos % (Auto) 0.1, Baso % (Auto) 0.2, Neut # (Auto) 8.9 H, Lymph # (Auto) 2.0, [place] # (Auto) 0.6, Eos # (Auto) 0.0, Baso # (Auto) 0.0 09/21/20 05:45: Sodium 141, Potassium 3.0 L, Chloride 99, Carbon Dioxide 37 H, Anion Gap 8.0, BUN 21 H, Creatinine 0.80, Estimated Creat Clear 39, Estimated GFR 69, Est GFR ( Amer) 83, Glucose 91, Calcium 8.6 Vital Signs - 24 hr 09/20/20 09:40 09/20/20 10:00 09/20/20 11:19 Temperature Pulse Rate 100 H 90 Pulse Rate [Apical] Pulse Rate [Right] 102 H Respiratory Rate 18 Blood Pressure [Left Arm] Blood Pressure [Right Arm] 147/121 H 02 Sat by Pulse Oximetry 92 L 09/20/20 13:30 09/20/20 13:45 09/20/20 14:00 Temperature 98.3 F Pulse Rate Pulse Rate [Apical] Pulse Rate [Right] 99 H 94 H 91 H Respiratory Rate 17 18 20 Blood Pressure [Left Arm] Blood Pressure [Right Arm] 143/88 H 145/81 H 140/89 02 Sat by Pulse Oximetry 94 L 95 09/20/20 14:15 09/20/20 14:45 09/20/20 15:15 Temperature Pulse Rate Pulse Rate [Apical] Pulse Rate [Right] 87 93 H 95 H Respiratory Rate 18 16 16 Blood Pressure [Left Arm] Blood Pressure [Right Arm] 150/85 H 135/92 H 135/82 02 Sat by Pulse Oximetry 97 96 96 09/20/20 15:45 09/20/20 16:00 09/20/20 16:15 Temperature 98.1 F Pulse Rate 100 H Pulse Rate [Apical] Pulse Rate [Right] 83 83 Respiratory Rate 17 20 Blood Pressure [Left Arm] Blood Pressure [Right Arm] 139/76 135/59 L 02 Sat by Pulse Oximetry 93 L 90 L 09/20/20 17:15 09/20/20 18:15 09/20/20 19:15 Temperature Pulse Rate Pulse Rate [Apical] 102 H Pulse Rate [Right] 96 H 93 H Respiratory Rate 18 19 20 Blood Pressure [Left Arm] 119/52 L Blood Pressure [Right Arm] 121/71 129/70 02 Sat by Pulse Oximetry 93 L 94 L 98 09/20/20 20:00 09/20/20 20:12 09/20/20 20:15 Temperature 97.8 F Pulse Rate 90 Pulse Rate [Apical] 98 H Pulse Rate [Right] Respiratory Rate 20 Blood Pressure [Left Arm] 131/60 Blood Pressure [Right Arm] 02 Sat by Pulse Oximetry 94 L 94 L 09/20/20 22:00 09/21/20 00:00 09/21/20 02:00 Temperature Pulse Rate 110 H Pulse Rate [Apical] 82 73 Pulse Rate [Right] 84 Respiratory Rate 20 18 19 Blood Pressure [Left Arm] 157/83 H 138/92 H Blood Pressure [Right Arm] 109/47 L 02 Sat by Pulse Oximetry 91 L 94 L 96 09/21/20 04:00 09/21/20 06:00 09/21/20 08:25 Temperature 97.6 F Pulse Rate 90 90 Pulse Rate [Apical] 85 94 H Pulse Rate [Right] Respiratory Rate 17 18 Blood Pressure [Left Arm] 155/83 H 150/85 H Blood Pressure [Right Arm] 02 Sat by Pulse Oximetry 94 L 92 L I & O for Last 24 hours: Intake & Output 09/18/20 09/19/20 09/20/20 09/21/20 23:59 23:59 23:59 23:59 Intake Total 57 / 57 280 / 280 360 / 360 Output Total 0 / 0 Balance 57 57 280 / 280 360 / 360 Weight 149 lb 3 oz 130 lb 1.164 oz 126 lb 6 oz - Constitutional no acute distress - *Routine Respiratory Exam Present: rhonchi (few). Absent: wheezes, crackles - *Routine Cardiovascular Exam Present: irregular rhythm - *Routine Extremities Exam Absent: cyanosis, clubbing, edema Assessment and Plan (1) Cardiomyopathy Status: Acute Category: Medical Code(s): I42.9 - Cardiomyopathy, unspecified (2) Atrial fibrillatio
--- NOTE | 2020-09-21 11:15 | PC.NURSE ---
pt may come out of stepdown status. but must remain on tele.
--- NOTE | 2020-09-21 17:27 | PC.NURSE ---
PT HAS DONE OK TODAY. SHE C/O FEELING SLIGHT SOB X1 O2 SAT 97%, PLACED O2 ON PT AND SHE STATED IT HELPED. PT HAS HAD NO OTHER COMPLAINTS SINCE. SHE'S HAD PERIODS OF CONFUSION, NOT KNOWING THE YEAR. CALL LIGHT WITHIN REACH, SAFETY IN PLACE. VSS. WILL CONT. TO MONITOR.
[2020-09-22] VITALS (9 sets, daily range): BP systolic 123–147; BP diastolic 61–85; PULSE 86–108; RESP 18–35; TEMP 36.4–36.9; O2SAT 93–96; BMI 21.2
--- NOTE | 2020-09-22 04:22 | PC.NURSE ---
t has rested well this shift. She is currently on RA at this time. Lungs are diminished t/o. BS active. Pt has ambulated with assistance using walker to BR. Pt had a BM. Pt tolerated ambulation well. VSS. Pt is afib on telemetry. (R) radial cath site with DSG intact. Bruising noted to both cath sites. (R) side of neck with cath site SALONI. No other concerns at this time. Will continue to monitor.
[2020-09-22 05:32] LABS: Basophils % 0.4 % (0.1-2.0); Eosinophils % 0.2 % (0.1-12.0); Hematocrit 47.3 % (37.0-47.0); Hemoglobin 14.7 g/dL (12.2-16.2); Lymphocytes # 1.9 K/mm3 (0.7-4.5); Mean Corpuscular Hemoglobin 28.5 pg (27.0-31.2); Mean Corpuscular Volume 91.8 fl (81-99); Mean Platelet Volume 8.9 fl (7.4-10.4); Monocytes # 0.5 K/mm3 (0.1-1.0); Monocytes % 5.8 % (1.7-9.3); Neutrophils # 6.1 K/mm3 (1.8-7.8); Neutrophils % 71.5 % (37.0-80.0); Platelet Count 164 K/mm3 (142-424); Red Blood Count 5.16 M/mm3 (4.20-5.40); Red Cell Distribution Width 13.9 % (11.5-17.5); White Blood Count 8.6 K/mm3 (4.8-10.8)
[2020-09-22 05:35] LABS: Chloride 104 mmol/L (98-107); Sodium 141 mmol/L (136-145)
[2020-09-22 05:38] LABS: Blood Urea Nitrogen 28 mg/dl (7-17); Calcium 8.7 mg/dl (8.4-10.2); Carbon Dioxide 34 mmol/L (22.0-30.0); Creatinine Clearance Estimated 38 mL/min (50-200); Estimated Glomerular Filt Rate 80 ml/min (>60); GFR (African American) 97 ML/MIN (>60); Glucose 109 mg/dl (74-100)
--- NOTE | 2020-09-22 08:45 | HMH.ACPN2 ---
Internal Medicine - PN: Kaila *Date: 09/22/20 *Time: 08:45 Interval history: Patient with no new complaints today. She did have an episode of SOB with hypoxia yesterday and needed supplemental oxygen. She is on RA now. Exam Vital signs and Labs for Last 24 Hours: Temp Pulse Resp BP Pulse Ox 97.6 F 97 H 21 124/61 95 09/22/20 07:53 09/22/20 08:13 09/22/20 07:53 09/22/20 07:53 09/22/20 07:53 Laboratory Results - last 24 hr 09/22/20 05:25: WBC 8.6 D, RBC 5.16, Hgb 14.7, Hct 47.3 H, MCV 91.8, MCH 28.5, MCHC 31.0 L, RDW 13.9, Plt Count 164, MPV 8.9, Neut % (Auto) 71.5, Lymph % (Auto) 22.0, [place] % (Auto) 5.8, Eos % (Auto) 0.2, Baso % (Auto) 0.4, Neut # (Auto) 6.1, Lymph # (Auto) 1.9, [place] # (Auto) 0.5, Eos # (Auto) 0.0, Baso # (Auto) 0.0 09/22/20 05:25: Sodium 141, Potassium 4.0 D, Chloride 104, Carbon Dioxide 34 H, Anion Gap 7.0, BUN 28 H D, Creatinine 0.70, Estimated Creat Clear 38, Estimated GFR 80, Est GFR ( Amer) 97, Glucose 109 H, Calcium 8.7 Vital Signs - 24 hr 09/21/20 10:00 09/21/20 12:00 09/21/20 15:47 Temperature 98.2 F Pulse Rate 80 Pulse Rate [Apical] 89 101 H 90 Respiratory Rate 19 19 16 Blood Pressure [Left Arm] 118/74 143/78 H 140/84 02 Sat by Pulse Oximetry 97 97 94 L 09/21/20 16:00 09/21/20 19:55 09/21/20 20:00 Temperature 97.9 F Pulse Rate 90 90 Pulse Rate [Apical] 88 Respiratory Rate 19 Blood Pressure [Left Arm] 130/64 02 Sat by Pulse Oximetry 95 09/21/20 23:31 09/22/20 00:00 09/22/20 04:00 Temperature 97.5 F L 98.1 F Pulse Rate 100 H 90 Pulse Rate [Apical] 88 96 H Respiratory Rate 20 18 Blood Pressure [Left Arm] 102/50 L 147/85 H 02 Sat by Pulse Oximetry 95 93 L 09/22/20 07:53 09/22/20 08:13 Temperature 97.6 F Pulse Rate 97 H Pulse Rate [Apical] 108 H Respiratory Rate 21 Blood Pressure [Left Arm] 124/61 02 Sat by Pulse Oximetry 95 I & O for Last 24 hours: Intake & Output 09/19/20 09/20/20 09/21/20 09/22/20 23:59 23:59 23:59 23:59 Intake Total 57 / 57 280 / 280 960 / 960 240 / 240 Output Total 0 / 0 1200 / 1200 120 / 120 Balance 57 / 57 280 / 280 -240 / -240 120 / 120 Weight 149 lb 3 oz 130 lb 1.164 oz 126 lb 6 oz 124 lb 4 oz - Constitutional no acute distress - *Routine HEENT Exam Head: Present: normocephalic Eye: Present: EOMI ENT: Present: mucous membranes moist - *Routine Neck Exam Present: supple. Absent: lymphadenopathy - *Routine Respiratory Exam Present: CTA bilaterally - *Routine Cardiovascular Exam Present: irregular rhythm - *Routine Abdominal Exam Present: soft, normoactive bowel sounds. Absent: tenderness - *Routine Extremities Exam Absent: cyanosis, clubbing, edema - *Routine Skin Exam Present: warm - *Routine Neurological Exam Present: alert Assessment and Plan (1) Cardiomyopathy Status: Acute Category: Medical Code(s): I42.9 - Cardiomyopathy, unspecified (2) Atrial fibrillation with RVR Status: Acute Category: Medical Code(s): I48.91 - Unspecified atrial fibrillation (3) Elevated brain natriuretic peptide (BNP) level Status: Acute Category: Medical Code(s): R79.89 - Other specified abnormal findings of blood chemistry (4) CHF (congestive heart failure) Status: Acute Category: Medical Code(s): I50.9 - Heart failure, unspecified (5) Orthopnea Status: Acute Category: Medical Code(s): R06.01 - Orthopnea (6) SOB (shortness of breath) Status: Acute Category: Medical Code(s): R06.02 - Shortness of breath (7) Palpitations Status: Acute Category: Medical Code(s): R00.2 - Palpitations (8) Hypertension Status: Chronic Category: Medical Code(s): I10 - Essential (primary) hypertension (9) Tobacco use Status: Chronic Category: Social Hx Code(s): Z72.0 - Tobacco use (10) Hypokinesis Status: Acute Category: Medical Code(s): R68.89 - Other general symptoms and signs (11) Pulmonary hypertension Status:
--- NOTE | 2020-09-22 16:21 | PC.NURSE ---
PT HAS HAD A GOOD DAY. HAS SAT UP IN THE CHAIR FOR MULTIPLE HOURS TODAY WITH STAFF ASSISTANCE. SHE HAS BEEN INCONTINENT WITH HER BLADDER SOME. EXPRESSES NO PAIN OR CONCERNS THIS SHIFT. HAS BEEN ON RA ALL SHIFT. VSS. SAFETY IN PLACE. CALL REYNAGA WITHIN REACH. WILL CONT. TO MONITOR.
[2020-09-23] VITALS: BP 122/85; PULSE 90; PULSE 98; RESP 16; TEMP 36.5; O2SAT 94
[2020-09-23 03:58] VITALS: BP 121/88; PULSE 97; RESP 16; TEMP 36.6; O2SAT 92
[2020-09-23 04:00] VITALS: PULSE 90
[2020-09-23 05:00] VITALS: BMI 21.0
--- NOTE | 2020-09-23 05:03 | PC.NURSE ---
No acute changes this sift. Pt A&O x3. Has remained on RA this shift. Lungs are diminished. BS active. Pt has ambulated with standby assistance using walker to BR. Tolerated well. Cath sites with bruising. No infection noted. Pt is afib on telemetry. She has denied any discomfort or soa. Call light within reach. Safety measures in place. Will continue to monitor.
[2020-09-23 06:26] LABS: Basophils % 0.5 % (0.1-2.0); Eosinophils # 0.1 K/mm3 (0.0-0.4); Eosinophils % 0.8 % (0.1-12.0); Hematocrit 49.2 % (37.0-47.0); Hemoglobin 15.5 g/dL (12.2-16.2); Lymphocytes # 1.6 K/mm3 (0.7-4.5); Lymphocytes % 23.9 % (10-50); Mean Corpuscular HGB Conc 31.4 g/dL (31.8-35.4); Mean Corpuscular Volume 92.4 fl (81-99); Monocytes # 0.5 K/mm3 (0.1-1.0); Monocytes % 6.9 % (1.7-9.3); Neutrophils # 4.5 K/mm3 (1.8-7.8); Neutrophils % 67.8 % (37.0-80.0); Platelet Count 177 K/mm3 (142-424); Red Blood Count 5.33 M/mm3 (4.20-5.40); Red Cell Distribution Width 14.1 % (11.5-17.5); White Blood Count 6.6 K/mm3 (4.8-10.8)
[2020-09-23 06:35] LABS: Chloride 103 mmol/L (98-107); Potassium 4.4 mmoL/L (3.5-5.1); Sodium 143 mmol/L (136-145)
[2020-09-23 06:38] LABS: Anion Gap 9.4 mEq/L (5-15); Blood Urea Nitrogen 36 mg/dl (7-17); Carbon Dioxide 35 mmol/L (22.0-30.0); Creatinine Clearance Estimated 38 mL/min (50-200); Estimated Glomerular Filt Rate 69 ml/min (>60); GFR (African American) 83 ML/MIN (>60)
[2020-09-23 06:39] LABS: Calcium 9.5 mg/dl (8.4-10.2); Glucose 104 mg/dl (74-100)
[2020-09-23 08:00] VITALS: PULSE 100
--- NOTE | 2020-09-23 08:30 | HMH.ACPN2 ---
<Madison Chau - Last Filed: 09/23/20 08:30> Internal Medicine - PN: Subj *Date: 09/23/20 *Time: 08:30 Interval history: Patient states she is feeling better. She still has some shortness of breath at times. She has some nausea. She has not vomited. She denies chest pain. She has been out of bed without difficulty. Laboratory data this morning shows a hemoglobin of 15.5 hematocrit 49.2 and white blood cell count of 6600. Blood chemistries show satisfactory electrolytes with a BUN of 36 and creatinine of 0.8. Exam Vital signs and Labs for Last 24 Hours: Temp Pulse Resp BP Pulse Ox 97.9 F 90 16 121/88 92 L 09/23/20 03:58 09/23/20 04:00 09/23/20 03:58 09/23/20 03:58 09/23/20 03:58 Laboratory Results - last 24 hr 09/23/20 05:38: WBC 6.6, RBC 5.33, Hgb 15.5, Hct 49.2 H, MCV 92.4, MCH 29.0, MCHC 31.4 L, RDW 14.1, Plt Count 177, MPV 9.0, Neut % (Auto) 67.8, Lymph % (Auto) 23.9, [place] % (Auto) 6.9, Eos % (Auto) 0.8, Baso % (Auto) 0.5, Neut # (Auto) 4.5, Lymph # (Auto) 1.6, [place] # (Auto) 0.5, Eos # (Auto) 0.1, Baso # (Auto) 0.0 09/23/20 05:38: Sodium 143, Potassium 4.4, Chloride 103, Carbon Dioxide 35 H, Anion Gap 9.4, BUN 36 H D, Creatinine 0.80, Estimated Creat Clear 38, Estimated GFR 69, Est GFR ( Amer) 83, Glucose 104 H, Calcium 9.5 I & O for Last 24 hours: Intake & Output 09/20/20 09/21/20 09/22/20 09/23/20 11:59 11:59 11:59 11:59 Intake Total 57 / 57 640 / 640 840 / 840 480 / 480 Output Total 0 / 0 1000 / 1000 320 / 320 120 / 120 Balance 57 / 57 -360 / -360 520 / 520 360 / 360 Weight 129 lb 6 oz 126 lb 6 oz 124 lb 4 oz 123 lb 8 oz - Constitutional no acute distress Comments: Sitting in comfort chair at bedside and has completed her breakfast. - *Routine Respiratory Exam Present: CTA bilaterally (Anteriorly and posteriorly) - *Routine Cardiovascular Exam Present: irregular rhythm (Monitor showing atrial fibrillation with a controlled ventricular rate 90-100.) - *Routine Abdominal Exam Present: soft, normoactive bowel sounds. Absent: tenderness - *Routine Extremities Exam Absent: edema, calf tenderness - *Routine Neurological Exam Present: alert, oriented X3 Assessment and Plan (1) Cardiomyopathy Status: Acute Category: Medical Code(s): I42.9 - Cardiomyopathy, unspecified (2) Atrial fibrillation with RVR Status: Acute Category: Medical Code(s): I48.91 - Unspecified atrial fibrillation (3) Elevated brain natriuretic peptide (BNP) level Status: Acute Category: Medical Code(s): R79.89 - Other specified abnormal findings of blood chemistry (4) CHF (congestive heart failure) Status: Acute Category: Medical Code(s): I50.9 - Heart failure, unspecified (5) Orthopnea Status: Acute Category: Medical Code(s): R06.01 - Orthopnea (6) SOB (shortness of breath) Status: Acute Category: Medical Code(s): R06.02 - Shortness of breath (7) Palpitations Status: Acute Category: Medical Code(s): R00.2 - Palpitations (8) Hypertension Status: Chronic Category: Medical Code(s): I10 - Essential (primary) hypertension (9) Tobacco use Status: Chronic Category: Social Hx Code(s): Z72.0 - Tobacco use (10) Hypokinesis Status: Acute Category: Medical Code(s): R68.89 - Other general symptoms and signs (11) Pulmonary hypertension Status: Acute Category: Medical Code(s): I27.20 - Pulmonary hypertension, unspecified (12) CAD (coronary artery disease), [place] coronary artery Status: Acute Category: Medical Code(s): I25.10 - Atherosclerotic heart disease of [place] coronary artery without angina pectoris (13) S/P cardiac catheterization Status: Acute Category: Surgical Code(s): Z98.890 - Other specified postprocedural states - Assessment and plan all Dx Assessment and Plan for all problems:: Probable discharge to home. <Isaías Birch - Last Filed: 09/23/20 09:08> Internal Medicine - PN: Subj *Date
[2020-09-23 09:24] VITALS: PULSE 94
--- NOTE | 2020-09-23 09:24 | HMH.PNCARD ---
Subjective Date: 09/23/20 Time: 09:24 Principal diagnosis: Atrial fibrillation, ACS, Pulm HTN, severe MR/TR Interval history: 84-year-old white female lying in bed in no acute distress. She states she feels significantly better than on admission. Her shortness of breath has improved and she notes a weight loss during her hospitalization related to diuretic therapy. She states she is quitting smoking for good. She is anxious to go home today. Exam Vital signs and Labs for Last 24 Hours: Temp Pulse Resp BP Pulse Ox 97.9 F 90 16 121/88 92 L 09/23/20 03:58 09/23/20 04:00 09/23/20 03:58 09/23/20 03:58 09/23/20 03:58 Laboratory Results - last 24 hr 09/23/20 05:38: WBC 6.6, RBC 5.33, Hgb 15.5, Hct 49.2 H, MCV 92.4, MCH 29.0, MCHC 31.4 L, RDW 14.1, Plt Count 177, MPV 9.0, Neut % (Auto) 67.8, Lymph % (Auto) 23.9, [place] % (Auto) 6.9, Eos % (Auto) 0.8, Baso % (Auto) 0.5, Neut # (Auto) 4.5, Lymph # (Auto) 1.6, [place] # (Auto) 0.5, Eos # (Auto) 0.1, Baso # (Auto) 0.0 09/23/20 05:38: Sodium 143, Potassium 4.4, Chloride 103, Carbon Dioxide 35 H, Anion Gap 9.4, BUN 36 H D, Creatinine 0.80, Estimated Creat Clear 38, Estimated GFR 69, Est GFR ( Amer) 83, Glucose 104 H, Calcium 9.5 I & O for Last 24 hours: Intake & Output 09/20/20 09/21/20 09/22/20 09/23/20 11:59 11:59 11:59 11:59 Intake Total 57 / 57 640 / 640 840 / 840 480 / 480 Output Total 0 / 0 1000 / 1000 320 / 320 120 / 120 Balance 57 / 57 -360 / -360 520 / 520 360 / 360 Weight 129 lb 6 oz 126 lb 6 oz 124 lb 4 oz 123 lb 8 oz - Constitutional no acute distress - *Routine Respiratory Exam Present: decreased breath sounds, CTA bilaterally - *Routine Cardiovascular Exam Present: irregularly irregular - *Routine Extremities Exam Absent: cyanosis, clubbing, edema - *Routine Neurological Exam Present: alert, oriented X3 Progress Note: A&P (1) Cardiomyopathy Status: Acute Assessment and plan: Ischemic cardiomyopathy, status post two-vessel coronary stenting (LAD and RCA). Continue aspirin and Plavix for 1 month and then discontinue aspirin. Plavix will be continued indefinitely in conjunction with Xarelto therapy for the patient's atrial fibrillation. Patient's ejection fraction is greater than 35% therefore no LifeVest indicated. Patient is on beta-girma therapy and will try to add low-dose losartan 25 mg daily for her ischemic cardiomyopathy. We will need to follow her renal functions and potassium level closely. Continue Lasix and spironolactone with plans for a BMP later this week to consider discontinuing potassium supplementation. (2) Atrial fibrillation with RVR Status: Acute Assessment and plan: Continue metoprolol 50 mg twice daily along with digoxin 0.125 mg daily for rate control. Continue Xarelto for anticoagulation. Consider GREGORY/cardioversion in 30 days which will give us a follow-up on her valve disease as well. (3) Elevated brain natriuretic peptide (BNP) level Status: Acute (4) CHF (congestive heart failure) Status: Acute Assessment and plan: Combined systolic and diastolic congestive heart failure (5) Orthopnea Status: Acute (6) SOB (shortness of breath) Status: Acute (7) Palpitations Status: Acute (8) Hypertension Status: Chronic (9) Tobacco use Status: Chronic (10) Hypokinesis Status: Acute (11) Pulmonary hypertension Status: Acute (12) CAD (coronary artery disease), [place] coronary artery Status: Acute (13) S/P cardiac catheterization Status: Acute (14) Severe mitral regurgitation Status: Acute (15) Severe tricuspid regurgitation Status: Acute (16) COPD (chronic obstructive pulmonary disease) Status: Acute Assessment and Plan for All Diagnoses:: Okay for discharge from cardiology standpoint. Follow-up in our office in 1 week. Would recommend a BMP later this week to assess the patient's renal status as well as her potassium level on
[2020-09-23 10:07] VITALS: BP 122/76
--- NOTE | 2020-09-23 10:12 | PC.NURSE ---
discharge stent teaching done with patient. daughter informed patient ready for discharge
--- NOTE | 2020-09-23 13:43 | HMH.PHACLD ---
Camilla Cardona has received discharge medication counseling on the following medications: PATIENT DISCHARGED ON ATORVASTATIN 40 MG HS, LISINOPRIL 10 MG BID, METOPROLOL TARTRATE 50 MG BID, CLOPIDOGREL 75 MG DAILY, AND ASPIRIN 81 MG DAILY.
--- NOTE | 2020-09-25 15:38 | HMH.DCSUM ---
General - General Admission date:: 09/19/20 Discharge date: 09/23/20 HPI HPI: This is an 84-year-old white female who presented to the emergency department with complaints of shortness of breath. The patient states that she has been short of breath for approximately a week. She states that this has continued to worsen. She states that she is unable to lie flat due to her significant shortness of breath. She states her shortness of breath is worse with exertion and it does improve with rest but it does not go away. She states that sitting up completely also causes her to be significantly short of breath. The patient states that she just has not felt well the last 2 weeks. She was also constipated and took MiraLAX approximately 2 days ago and has been having diarrhea ever since then. She denies any chest pain or pressure. She denies any lower extremity edema. She denies any fever, chills, nausea or vomiting. She denies a cough. She does complain of excessive burping in the last 2 weeks as well and also states that this gets worse when she lies down. She states that her heart started racing 2 days ago and has not resolved. She states that this got worse this morning. On presentation to the emergency department she was found to be in atrial fibrillation with RVR, heart rate in the 180s. She was given 20 mg of IV diltiazem and her heart rate dropped down to the 110s to 120s. She remains in atrial fibrillation at this time. (above as per Leydi Dawson) Hospital Course Hospital Course: The patient's chest x-ray showed cardiomegaly but nothing acute. Her echo showed an EF of 40% and the left ventricle was globally hypokinetic. She had a right ventricular systolic pressure 55 mmHg. She was seen in consultation by cardiology and they gave her 40 mg of IV diltiazem and her heart rate improved into the 120s. She was started on a diltiazem drip as well as weight-based Lovenox twice daily for anticoagulation. She was given IV Lasix twice daily for diuresis due to her elevated BNP. Her troponin was elevated, therefore cardiology wanted to proceed with a left heart cath. She was started on metoprolol 25 mg every 6 hours for blood pressure and heart rate control and was also given 500 mcg of IV digoxin and then started on digoxin 0.125 mg daily. She had a heart cath on 09/20/2020 and had 5 stents placed. She was started on Plavix 600 mg x 1 followed by 75 mg daily, aspirin 81 mg daily plus Xarelto 20 mg daily. Cardiology wanted to continue triple anticoagulation therapy for 1 month and then at the end of 1 month discontinue her aspirin and maintain Xarelto and Plavix. They wanted to control her atrial fib with beta-blockers and digoxin. They also recommended cardiac rehab. The patient tolerated the procedure well and denied any chest pain. Her shortness of breath did improve after stents were placed. Her heart rate decreased and she was able to rest better. Her potassium was replaced as it was low. She did have an episode after her heart cath of shortness of breath with hypoxia and she required supplemental oxygen. She was weaned back down to room air and her sats were stable. Her spironolactone dose was increased and her potassium dose was decreased. She was stable to be discharged home and will follow up with cardiology in their office. Objective Vital signs: Temp Pulse Resp BP Pulse Ox 97.9 F 94 H 16 122/76 92 L 09/23/20 03:58 09/23/20 09:24 09/23/20 03:58 09/23/20 10:07 09/23/20 03:58 Narrative: - Constitutional no acute distress - *Routine HEENT Exam Head: Present: normocephalic Eye: Present: EOMI, PERRL ENT: Present: mucous membranes dry - *Routine Neck Exam Present: supple. Absent: lymphadenopathy - *Routine Respiratory Exam Present: decreased breath sounds, CTA bilaterally - *Routine Cardiovascular Exam Present: irregularly irregular - *Routine Abdominal Exam Present: soft, normoactive
== END 2020-09-23 10:34 | disposition home or self-care (01) | DRG 246 ==
LOC: ER 09:36 → 2ND 15:40
PROVIDERS: Internal Medicine; Admitting Provider Family Medicine; Emergency Provider Emergency Medicine; PCP Family Medicine; Visit Provider Family Medicine
PROC: 027237Z Dilation of Coronary Artery, Three Arteries with Four or More Drug-eluting Intraluminal Devices, Percutaneous Approach (ICD-10-PCS; principal; 2020-09-20 12:00)
DX: I25.119 Atherosclerotic heart disease of native coronary artery with unspecified angina pectoris (principal); I48.91 Unspecified atrial fibrillation; F17.210 Nicotine dependence, cigarettes, uncomplicated; I25.5 Ischemic cardiomyopathy; Z71.6 Tobacco abuse counseling; I27.20 Pulmonary hypertension, unspecified; I08.1 Rheumatic disorders of both mitral and tricuspid valves; J44.9 Chronic obstructive pulmonary disease, unspecified; I11.0 Hypertensive heart disease with heart failure; I50.9 Heart failure, unspecified; Z79.82 Long term (current) use of aspirin
CPT/HCPCS: 36415; 71045; 80048; 80061; 82803; 83735; 83880; 84100; 84443; 84484; 85007; 85025; 85347; 85378; 87581; 87633; 87798; 92928; 92929; 93005; 93306; 93458; 94760; 94761; 99152; 99153; 99203; C1769; C1876; C1894; C9600; C9601; G0463; J1644; J2405; Q9967

== ENCOUNTER → 2020-10-01 09:48 | Outpatient (CLI) | payer MEDICARE, SELFPAY ==
[2020-10-01 10:18] LABS: Hematocrit 47.8 % (37.0-47.0); Hemoglobin 14.8 g/dL (12.2-16.2)
[2020-10-01 10:49] LABS: Blood Urea Nitrogen 25 mg/dl (7-17); Estimated Glomerular Filt Rate 69 ml/min (>60); GFR (African American) 83 ML/MIN (>60)
== END ==
PROVIDERS: Visit Provider Internal Medicine
DX: R06.02 Shortness of breath (principal); I10 Essential (primary) hypertension; R79.1 Abnormal coagulation profile
CPT/HCPCS: 36415; 82565; 84520; 85014; 85018

== ENCOUNTER → 2020-10-23 13:54 | Outpatient (CLI) | payer MEDICARE, SELFPAY ==
[2020-10-23 14:25] LABS: Basophils # 0.1 K/mm3 (0-0.2); Eosinophils # 0.2 K/mm3 (0.0-0.4); Eosinophils % 2.6 % (0.1-12.0); Hematocrit 42.1 % (37.0-47.0); Hemoglobin 13.4 g/dL (12.2-16.2); Lymphocytes # 1.8 K/mm3 (0.7-4.5); Lymphocytes % 29.1 % (10-50); Mean Corpuscular HGB Conc 31.8 g/dL (31.8-35.4); Mean Corpuscular Hemoglobin 28.8 pg (27.0-31.2); Mean Corpuscular Volume 90.5 fl (81-99); Mean Platelet Volume 8.4 fl (7.4-10.4); Monocytes # 0.4 K/mm3 (0.1-1.0); Monocytes % 5.5 % (1.7-9.3); Neutrophils # 3.9 K/mm3 (1.8-7.8); Neutrophils % 61.7 % (37.0-80.0); Platelet Count 163 K/mm3 (142-424); Red Blood Count 4.65 M/mm3 (4.20-5.40); Red Cell Distribution Width 14.8 % (11.5-17.5); White Blood Count 6.3 K/mm3 (4.8-10.8)
[2020-10-23 15:02] LABS: Chloride 104 mmol/L (98-107)
[2020-10-23 15:03] LABS: Potassium 4.4 mmoL/L (3.5-5.1); Sodium 140 mmol/L (136-145)
[2020-10-23 15:05] LABS: Blood Urea Nitrogen 22 mg/dl (7-17); Estimated Glomerular Filt Rate 80 ml/min (>60); GFR (African American) 96 ML/MIN (>60)
[2020-10-23 15:06] LABS: Anion Gap 11.4 mEq/L (5-15); Calcium 9.4 mg/dl (8.4-10.2); Carbon Dioxide 29 mmol/L (22.0-30.0); Glucose 91 mg/dl (74-100)
== END ==
PROVIDERS: Visit Provider Physician Assistant
DX: I25.10 Atherosclerotic heart disease of native coronary artery without angina pectoris; I34.0 Nonrheumatic mitral (valve) insufficiency; I42.9 Cardiomyopathy, unspecified; I48.91 Unspecified atrial fibrillation; I50.9 Heart failure, unspecified; J44.9 Chronic obstructive pulmonary disease, unspecified; R06.02 Shortness of breath; Z01.812 Encounter for preprocedural laboratory examination; Z20.822 Contact with and (suspected) exposure to COVID-19; I11.0 Hypertensive heart disease with heart failure
CPT/HCPCS: 36415; 80048; 85025; U0003

== ENCOUNTER 2021-10-25 14:57 | Emergency (ER) | payer MEDICARE, SELFPAY ==
[2021-10-25 14:59] VITALS: BMI 25.4
[2021-10-25 15:00] VITALS: BP 163/89; PULSE 116; RESP 27; O2SAT 99; BMI 28.3
--- NOTE | 2021-10-25 15:00 | PC.NURSE ---
pt straight to CT on arrival
--- NOTE | 2021-10-25 15:00 | CT_ITS ---
PROCEDURE INFORMATION: Exam: CT Head Without Contrast Exam date and time: 10/25/2021 2:58 PM Age: 86 years old Clinical indication: Coma or unconsciousness; Additional info: Trauma TECHNIQUE: Imaging protocol: Computed tomography of the head without contrast. Radiation optimization: All CT scans at this facility use at least one of these dose optimization techniques: automated exposure control; mA and/or kV adjustment per patient size (includes targeted exams where dose is matched to clinical indication); or iterative reconstruction. Other technique: STROKE PROTOCOL was implemented. COMPARISON: No relevant prior studies available. FINDINGS: Brain: Large intraparenchymal hematoma in the left hemisphere measuring up to 9.5 x 5.5 x 5.3 cm with significant associated edema. There is [id number] midline shift approximately 1.3 cm. There is mass effect on the midbrain with some downward herniation. Prominent sulci. Patchy hypodensity of the cerebral white matter which are nonspecific but likely secondary to microangiopathic changes. Cerebral ventricles: The ventricles are prominent secondary to diffuse volume loss/atrophy. Significant mass effect on the left ventricular system. Paranasal sinuses: Visualized sinuses are unremarkable. No fluid levels. Mastoid air cells: Visualized mastoid air cells are well aerated. Bones/joints: Unremarkable. No acute fracture. Soft tissues: Unremarkable. IMPRESSION: 1. Large intraparenchymal hematoma in the left hemisphere measuring up to 9.5 x 5.5 x 5.3 cm with significant associated edema. There is [id number] midline shift approximately 1.3 cm. There is mass effect on the midbrain with some downward herniation. 2. Remainder of findings as described above. These findings were discussed with Stefan Castano at 3:20 p.m. EST. ASSESSMENT: ASPECTS ([place] Stroke Program Early CT Score) is 10.
--- NOTE | 2021-10-25 15:10 | PC.NURSE ---
Spoke with MDs about transferring patient to the Emergency Room.
[2021-10-25 15:13] VITALS: BP 173/95
--- NOTE | 2021-10-25 15:13 | PC.NURSE ---
virtual radiology calling to speak to
--- NOTE | 2021-10-25 15:18 | HMH.EDGENADL ---
ED Disposition Clinical Impression: ICH (intracerebral hemorrhage) Qualifiers: Intracerebral hemorrhage etiology: traumatic Encounter type: initial encounter Laterality: left Loss of consciousness presence/duration: with LOC of unspecified duration Qualified Code(s): S06.359A - Traumatic hemorrhage of left cerebrum with loss of consciousness of unspecified duration, initial encounter Disposition: Xfer Short-Term Hosp Condition on Discharge: Good - Critical Care Critical Care Time: Yes (30 min) Attestation: On , the high probability of a clinically significant, sudden or life threatening deterioration of the following system(s) required my full and direct attention, intervention and personal management. The time I documented below is in addition to time spent performing reported procedures but includes the following listed in this critical care notation. Vital system(s) involved:: Central Nervous System, Respiratory Failure My critical care processes included: Assessment & monitoring of V/S, Initial and Re-exams, Coordinating Care, Medication Orders and management, Documentation Medical Decision Making - Medical Records Medical records reviewed: Yes: I reviewed the patient's medical records. - Darian Inquiry Pt receiving controlled substance: No Orders (Tests/Meds): ORDERS Category Date Time Status CT head/brain wo con Stat Cat Scan 10/25/21 15:00 Taken Medical Decision Narrative: [facility] neurosurg and ED accpt transfer General Adult HPI - General Chief complaint: Fall Stated complaint: fall Time Seen by Provider: 10/25/21 15:19 Limitations: Altered Mental Status - History of Present Illness HPI narrative: found down by neighbor, semi-conscious, ems reports ams Consistency: constant Relieving factors: none Exacerbating factors: none - Related Data Home Medications Medication Instructions Recorded Confirmed Amitriptyline HCl [Elavil 50mg 50 mg PO HS 09/20/20 10/24/20 tablet] Atorvastatin Calcium [Lipitor 40mg 40 mg PO HS 09/20/20 10/24/20 Tab] lisinopriL [Lisinopril] 10 mg PO BID 09/20/20 10/24/20 ondansetron HCL [Ondansetron 4mg 4 mg PO Q8HP PRN 09/20/20 10/24/20 tab*] oxybutynin chloride 5 mg 5 mg PO DAILY PRN 10/01/20 10/24/20 tablet,extended release 24 hr Previous Rx's Medication Instructions Recorded Aspirin [Aspirin 81mg EC Tab] 81 mg PO DAILY #30 tablet. 09/23/20 Clopidogrel Bisulfate [Clopidogrel 75 mg PO DAILY #30 tab 09/23/20 75mg Tab] Digoxin [Digoxin 0.125mg Tablet] 125 mcg PO DAILY #30 tab 09/23/20 Furosemide [Furosemide 20mg Tab*] 20 mg PO DAILY #30 tab 09/23/20 Metoprolol Tartrate 50 mg PO BID #60 tab 09/23/20 Rivaroxaban [Xarelto 15mg tablet] 15 mg PO DAILY #30 tab 09/23/20 Spironolactone [Aldactone 50mg 50 mg PO DAILY #30 tab 09/23/20 Tab] Allergies Allergy/AdvReac Type Severity Reaction Status Date / Time No Known Allergies Allergy Verified 10/24/20 09:03 [facility] History - Hepatitis A Screen Attestation statement:: This patient has been screened for Hepatitis A risk factors. Medical History: Reports:: Arrhythmia, Atrial Fibrillation, Cardiomyopathy, Congestive Heart Failure, Coronary Artery Disease, Cerebrovascular Accident, Hypertension, Palpitations Denies:: Atherosclerotic Heart Disease, Cancer, Diabetes Mellitus Type 1, Diabetes Mellitus Type 2, Hyperlipidemia, Internal Pacemaker, MRSA, Seizures Other Surgeries: Yes: Cardiac Catheterization, Coronary Stent. No: Pacemaker Amputation: No Fractures: No - Social History Smoking Status: Current every day smoker Tobacco Type: cigarettes # Packs/Day (cigarettes): 3 Alcohol Intake: never Occupational Status: retired Housing: apartment Family Hx:: Hypertension ROS Obtained: Yes All systems reviewed & no additional complaints Physical Exam - General General appearance: obtunded - Head Head exam: atraumatic, normocephalic - Eye Eye exam: Present: normal appeara
[2021-10-25 15:20] VITALS: RESP 18; O2SAT 100
--- NOTE | 2021-10-25 15:20 | PC.NURSE ---
pt accepted to [facility]. pt images [facility] to [facility]. [facility] on standby for transport.
--- NOTE | 2021-10-25 15:21 | XR_ITS ---
PROCEDURE INFORMATION: Exam: XR Chest Exam date and time: 10/25/2021 3:25 PM Age: 86 years old Clinical indication: Device placement; Ett placement (vent status); Additional info: Et tube placement TECHNIQUE: Imaging protocol: XR of the chest. Views: 1 view. COMPARISON: CR XR CHEST PORTABLE 09/19/2020 8:21 AM FINDINGS: Tubes, catheters and devices: Endotracheal tube is present with tip approximately 3.3 cm above the karen. Lungs: Dense opacification in the right upper lung that may represent atelectasis and underlying mass should be considered. Pleural spaces: Unremarkable. No pleural effusion. No pneumothorax. Heart/Mediastinum: The heart appears top-normal in size. Vasculature: There is mild tortuosity of the thoracic aorta. Diaphragm: Mild right hemidiaphragm elevation. Bones/joints: Mild degenerative changes of the shoulder joints. IMPRESSION: 1. Endotracheal tube is present with tip approximately 3.3 cm above the karen. 2. Dense opacification in the right upper lung that may represent atelectasis and underlying mass should be considered. 3. Remainder of findings as described above.
--- NOTE | 2021-10-25 15:25 | PC.NURSE ---
this nurse and MD spoke with pt family and updated on POC and pt condition. pt brought back to pt's room at this time prior to transfer.
[2021-10-25 15:30] VITALS: BP 136/84; PULSE 84; RESP 17; O2SAT 100
[2021-10-25 15:45] VITALS: BP 134/88; PULSE 100; RESP 18; O2SAT 100
[2021-10-25 16:00] VITALS: BP 131/83; PULSE 93; RESP 18; TEMP 36.1; O2SAT 100
--- NOTE | 2021-10-25 16:00 | PC.NURSE ---
pt transferred to via [facility] at this time
== END 2021-10-25 16:00 | disposition short-term general hospital (02) ==
PROVIDERS: Emergency Provider Emergency Medicine
DX: S06.359A Traumatic hemorrhage of left cerebrum with loss of consciousness of unspecified duration, initial encounter (principal); R00.2 Palpitations; I11.0 Hypertensive heart disease with heart failure; I50.9 Heart failure, unspecified; I25.10 Atherosclerotic heart disease of native coronary artery without angina pectoris; I48.91 Unspecified atrial fibrillation; G40.909 Epilepsy, unspecified, not intractable, without status epilepticus; J96.90 Respiratory failure, unspecified, unspecified whether with hypoxia or hypercapnia; F17.210 Nicotine dependence, cigarettes, uncomplicated; Z79.01 Long term (current) use of anticoagulants; Z79.82 Long term (current) use of aspirin; Z79.899 Other long term (current) drug therapy; Z95.5 Presence of coronary angioplasty implant and graft; Z86.73 Personal history of transient ischemic attack (TIA), and cerebral infarction without residual deficits; Z86.14 Personal history of Methicillin resistant Staphylococcus aureus infection
CPT/HCPCS: 31500; 70450; 71045; 96374; 96375; 99285; J0330